=== PATIENT | male | born 1990 | race Two or more races ===

== ENCOUNTER 2021-06-18 03:51 | Emergency (ER) | payer BC ==
[~2021-06-18] VITALS: Ht 175.3 cm; Wt 81.0 kg
[2021-06-18 03:55] VITALS: BP 136/67
== END 2021-06-18 06:32 | disposition home or self-care (01) ==
LOC: ER 03:53
DX: R19.7 Diarrhea, unspecified (principal); K62.89 Other specified diseases of anus and rectum
CPT/HCPCS: 99281